=== PATIENT | female | born 1955 | race Caucasian/White ===

== ENCOUNTER → 2017-01-20 | Outpatient (CLI) | payer OTHER ==
[~2017-01-20] MED LIST: ALBUTEROL17 GM INH; ALDACTAZIDE 50/1 TAB PO; AMBIEN PO; ASPIRIN PO; BUPROPION HCL150 M3 PO; BUSPAR PO; DESYREL50 MG PO; DICLOFENAC PO; FLEXERIL10 M1 PO; FOLIC ACID PO; GABAPENTIN400 MG PO; HYDROXYZINE PAM25 M1 PO; HYDROXYZINE PAM25 MG PO; IBUPROFEN800 MG PO; IMDUR PO; LASIX20 MG PO; LOPRESSOR PO; LORTAB 10/500 T1 TAB PO; LORTAB 5/500 TA1 TA1 PO; METOPROLOL SUCC25 MG PO; METOPROLOL TAR25 MG PO; NITROGYLCERIN SUBLINGUAL; NITROSTAT0.4 MG SL; NO MEDICATIONS; OXYCODONE-ACET1 EAC1 PO; PREDNISONE PO; SIMVASTATIN40 MG PO; SPIRIVA18 MCG INH; THIAMINE HCL100 MG PO; TRAMADOL HCL50 M2 PO; ULTRAM PO; VENTOLIN5 MG/ML INH; VOLTAREN PO; VOLTAREN75 MG PO; ZOCOR PO
--- NOTE | ~2017-01-20 | EKG ---
PATIENT: DIEGO ELIZONDO UNIT #: [id number] Ventricular Rate: 62 BPM Atrial Rate: 62 BPM P-R Interval: 136 ms QRS Duration: 84 ms Q-T Interval: 422 ms QTC Calculation(Bezet): 428 ms P [place]: 37 degrees Calculated R [place]: 22 degrees Calculated T [place]: 44 degrees Diagnosis Line: Normal sinus rhythm Diagnosis Line: Normal ECG Diagnosis Line: When compared with ECG of 19-SEP-2015 10:54, Diagnosis Line: No significant change was found Diagnosis Line: Confirmed by CAITLIN PANDA MD ([id number]) on Diagnosis Line: 01/20/2017 5:11:11 PM INTERPRETING MD: AMARILYS HERNANDEZ
--- NOTE | ~2017-01-20 | CR63 ---
[facility] A Service of [facility] RADIOLOGY TEXT RESULTS PATIENT: DIEGO ELIZONDO LOCATION: [facility] : 57 UNIT #: [id number] AGE: [address]: Raul Lantigua MD SEX: F ORDER DR: [id number] [facility] [address] [facility] [place], [place] [address] [id number] O MR#: [id number] Acc #: [id number] NAME: DIEGO ELIZONDO : 1955 SEX: F STUDY DATE/TIME: 01/20/2017 15:38 UNIT: [facility] ROOM: STUDY DESCRIPTION: CR Chest 2 View Attending Physician: Nahun Lantigua M.D. Referring Physician: Nahun Lantigua M.D. Ordering Physician: Nahun Lantigua M.D. Primary Care Physician: Karyn Daniels A.P.R.N. MEDICAL IMAGING REPORT This report is preliminary unless electronic signature is present EXAM Chest, 01/20/2017 HISTORY 61-year-old woman preop clearance for total right knee arthroplasty. History of osteoarthritis. COMPARISON Chest, 09/19/2015 FINDINGS PA and lateral chest views show normal cardiac size and configuration. Hilar structures and mediastinal contours are preserved. Lungs are fully expanded and clear with a small calcified granuloma stable in the right upper lobe. Costophrenic angles are preserved. There is generalized demineralization. Previous compression fracture with vertebroplasty lower thoracic vertebrae. Occasional other vertebrae with mild compression and anterior wedging noted. IMPRESSION Stable chest with no acute chest finding. Dictated by... Preston Leigh M.D. THIS IS AN ELECTRONICALLY VERIFIED REPORT Preston Leigh M.D. at 01/21/2017 1:19 PM Lisa TD: 01/21/2017 11:29 JOB #: [id number] [facility] A Service of [facility] RADIOLOGY TEXT RESULTS PATIENT: DIEGO ELIZONDO LOCATION: [facility] : 57 UNIT #: [id number] AGE: [address]: Raul Lantigua MD SEX: F ORDER DR: MEDICAL IMAGING REPORT Page 1 of 1 COPY
[2017-01-20 14:34] LABS: HEMATOCRIT 41.5 % (35.0-45.0); HEMOGLOBIN 14.2 gm/dL (12.0-16.0); MEAN CELL VOLUME 90.9 FL (83-96); MEAN CORPUSCULAR HEMOGLOBIN 31.1 PG (28-34); MEAN CORPUSCULAR HGB CONC 34.2 g/dL (30-36); MEAN PLATELET VOLUME 8.5 FL (6.5-11.5); RED BLOOD COUNT 4.56 X10e (3.90-5.30); RED CELL DISTRIBUTION WIDTH 13.1 % (11.0-15.5); WHITE BLOOD COUNT 4.5 X10e3 (4.0-10.5)
[2017-01-20 14:42] LABS: URINE APPEARANCE CLEAR; URINE BILIRUBIN NEG (NEG); URINE BLOOD TRACE (NEG); URINE COLOR YELLOW; URINE GLUCOSE NEG (NEG); URINE KETONE NEG (NEG); URINE LEUKOCYTE ESTERASE NEG (NEG); URINE NITRATE NEG (NEG); URINE PROTEIN NEG (NEG); URINE SPECIFIC GRAVITY 1.007 (1.003-1.035); URINE UROBILINOGEN 0.2 MG/DL (NEG)
[2017-01-20 14:45] LABS: URBCS1 AUWI 0-2 /[HPF] (0-2); URINE BACTERIA AUWI NEG (NEGATIVE); URINE SQUAMOUS EPITHELIAL CELL NONE SEEN /[HPF]; UWBCS1 AUWI 0-2 (0-5)
[2017-01-20 14:47] LABS: CULTURE INDICATED? NO
[2017-01-20 14:48] LABS: INR 0.9; PROTHROMBIN TIME (PATIENT) 10.1 SECONDS (10.0-11.7)
[2017-01-20 15:06] LABS: BUN/CREATININE RATIO 14.44; CALCIUM SERUM 9.2 mg/dL (8.4-10.2); CREATININE SERUM 0.9 mg/dL (0.6-1.4); GLOM FILT RATE Estimated 69.5 mL/min (>60); POTASSIUM 4.4 mmol/L (3.5-5.1)
[2017-01-20 15:17] LABS: URINE SOURCE CLEAN CATCH
== END | disposition home or self-care (01) ==
LOC: CAMB 12:45
PROVIDERS: Orthopaedic Surgery
DX: Z01.818 Encounter for other preprocedural examination (principal); M17.11 Unilateral primary osteoarthritis, right knee
CPT/HCPCS: 36415; 71020; 80048; 81003; 85027; 85610; 86850; 86900; 86901; 87070; 93005

== ENCOUNTER 2017-01-30 05:25 | Inpatient (IN) | payer OTHER ==
[~2017-01-30] VITALS: Ht 162.6 cm; Wt 71.6 kg
--- NOTE | ~2017-01-30 | OR ---
Unit #: [id number] #: [id number] Patient: DIEGO ELIZONDO [id number] [address] [place], [place] [address] [id number] MR#: [id number] NAME: DIEGO ELIZONDO ROOM: [facility] Date of Procedure: 01/30/2017 Admission Date: 01/30/2017 Surgeon: Nahun Lantigua M.D. : 1955 Attending Physician: Nahun Lantigua M.D. Primary Care Physician: Karyn Daniels A.P.R.N. PROCEDURE OPERATIVE NOTE PREOPERATIVE DIAGNOSIS Right knee osteoarthritis. POSTOPERATIVE DIAGNOSIS Right knee osteoarthritis. PROCEDURE PERFORMED Total knee arthroplasty, right knee. ENVIRONMENTAL COMPLIANCE OFFICER Jn. IMPLANTS USED Attune #5 narrow femur, Attune #4 tibia, 6 mm poly, 38 mm patella. COMPLICATIONS None. DESCRIPTION OF PROCEDURE After obtaining informed consent, she was taken to the operating room and placed in the supine position. After adequate induction of general anesthesia, she was prepped and draped in a sterile fashion. An incision was made in the midline, and the extensor mechanism was exposed subcutaneously. A paramedian incision was made exposing the joint, this was carried down sharply on the medial border of the patellar tendon. A flap was created medially along the anteromedial tibia, and this was carried around the corner medially on the tibial plateau fraying to the proximal 1 cm of the tibia. Bone spurs were removed from the tibia. Part of the fat pad was removed to improve visualization. A Hohmann was placed posteriorly to sublux the tibia forward. The ACL was removed. The menisci were removed. The Hohmann was taken out. Osteophytes were removed from the distal femur. A drill was used to open the distal femur 1 cm proximal to the notch and 3 mm medial. The intramedullary brennan was placed into the femur. The distal femoral cutting guide was placed onto the distal femur, and it was pinned in place, 10 mm was resected distally, at this point, the guide was removed. The proximal tibial guide was then placed onto the tibia, it was aligned in 4 to 5-degrees of posterior slope. It was checked with the alignment rods, and found to be in a neutral position. It was pinned in place, and a 9 mm was resected in the tibial plateau laterally since she had no erosion of bone. At this point, the extension gap was checked, and it was found to accommodate a 6 mm insert with 1 to 2 mm of laxity medially and laterally. The extension gap was rectangular. The knee was flexed. The measured guide was placed onto Unit #: [id number] #: [id number] Patient: DIEGO ELIZONDO the femur, and measured a size 5 implant, it was pinned in place. The anterior femur was cut, and it was checked, there was no notching. The remaining cuts were made on the femur, it should be noted with the cutting block in place. The flexion gap was checked, it was found to be rectangular and to accommodate a 6. After all the cuts were made, the block was removed, and the bone fragments were removed. The finishing guide was placed onto the femur, and the sherif cut was made posteriorly. The osteophytes were removed with a curved osteotome using the finishing guide as a reference, this was then removed. The tibia was subluxed forward, it was found to be a size 4. The femoral trial was placed. The tibia was then floated in flexion and extension, and marked to get the rotation correct. The femoral trial was removed. The tibial tray was then placed according to our silverio in proper rotation, this did align the center of the tibial tray with medial third of the tibial tubercle. It was then pinned in place and punched. Again, this was a size 4 tibia. The trials were placed with a 6 mm insert, it was found to be completely stable through the entire arc of motion. There was no booking. There was no increased rollback on the femur. There was no anterior roll on the femur. The leg was put in full extension. The patella was then addressed. The patella was 20.5 mm, therefore the sherif was used to resect 7.5 mm from the patella. It was then sized, and found to be a size 38. It was aligned properly with the joint line, and then drilled. The knee was copiously irrigated. A periarticular injection was then used posteriorly, medially, and laterally. Again, it was copiously irrigated, and dried. The components were then cemented in place. It was held in full extension for cementation. All excess cement was removed. The trial 6 was again used, it was found to be stable, so 6 mm poly insert was implanted. About 700 mg of tranexamic acid was given. The knee was then filled with normal saline and Betadine paint solution, and left for a full 5 minutes. It was then irrigated the tourniquet was released, and hemostasis was obtained. The rest of the periarticular injection was given anteriorly. The knee was run through range of motion. There were no issues with tracking of the patella. A single stitch was then placed at the superomedial corner of the patella to hold the extensor mechanism in place, it could be flexed to 110 degrees without breaking the Vicryl stitch, therefore the extensor mechanism was closed with #1 Vicryl. It was irrigated again, and the skin was closed with 0, 2-0 and 3-0 Vicryl. Prineo dressing was used for final closure. She tolerated the procedure well. All counts were accurate. She was sent to the recovery room in stable condition. Dictated by... Marti Linares/ivory TD: 01/30/2017 11:03 JOB #: [id number] Unit #: [id number] #: [id number] Patient: DIEGO ELIZONDO PROCEDURE OPERATIVE NOTE Page 1 of 1 X Raul Lantigua MD X PROCEDURE OPERATIVE NOTE
[~2017-01-30 05:25] MED LIST changes: -OXYCODONE-ACET1 EAC1 PO
[2017-01-30 10:25] LABS: HEMATOCRIT 36.8 % (35.0-45.0); HEMOGLOBIN 12.4 gm/dL (12.0-16.0)
[2017-01-31 08:04] LABS: BASOPHIL% 0.4 % (0-2.5); EOSINOPHIL% 0.7 % (0.0-7.0); HEMATOCRIT 33.6 % (35.0-45.0); HEMOGLOBIN 11.5 gm/dL (12.0-16.0); LYMPHOCYTE% 32.3 % (17.0-45.0); MEAN CELL VOLUME 92.5 FL (83-96); MEAN CORPUSCULAR HEMOGLOBIN 31.5 PG (28-34); MEAN CORPUSCULAR HGB CONC 34.1 g/dL (30-36); MEAN PLATELET VOLUME 8.9 FL (6.5-11.5); MONOCYTE# 0.7 X10e3 (0-1.0); MONOCYTE% 11.6 % (3.0-12.0); NEUTROPHIL# 3.5 X10e3 (1.5-7.1); PLATELET COUNT 128 X10e3 (140-420); RED BLOOD COUNT 3.64 X10e (3.90-5.30); RED CELL DISTRIBUTION WIDTH 13.3 % (11.0-15.5); WHITE BLOOD COUNT 6.3 X10e3 (4.0-10.5)
[2017-01-31 08:07] LABS: DIFF IND NO
[2017-01-31] MEDS ORDERED: OXYCODONE-ACET1 EAC1 PO (13:41)
== END 2017-01-31 17:19 | disposition home health service (06) | DRG 470 ==
LOC: CSUR 05:25 → CPACUOF 09:19 → CSUR 09:30 → CPACUOF 09:30 → C4B 11:39 → CPACUOF 11:39 → C4B 01-31 17:19
PROVIDERS: Orthopaedic Surgery
PROC: 0SRC0J9 Replacement of Right Knee Joint with Synthetic Substitute, Cemented, Open Approach (ICD-10-PCS; principal; 2017-01-30 07:30)
DX: M17.11 Unilateral primary osteoarthritis, right knee (principal); I10 Essential (primary) hypertension; F17.200 Nicotine dependence, unspecified, uncomplicated; Z98.51 Tubal ligation status
CPT/HCPCS: 84295; 85014; 85018; 85025; 94760; 97110; 97116; 97161; 97165; 97530; C1776; G8978-GP; G8979-GP; J0171; J0330; J0690; J0735; J1885; J2250; J2270; J2405; J2710; J2795; J3010